=== PATIENT | female | born 1975 | race Two or more races ===

== ENCOUNTER → 2020-08-25 | Outpatient (CLI) | payer OTHER | LOC: RAD 08:48 | PROVIDERS: ATTEND Urology | DX: N20.0 Calculus of kidney (principal) | CPT/HCPCS: 74018 ==

== ENCOUNTER → 2020-10-27 | Day surgery (SDC) | payer OTHER ==
[2020-10-25 14:55] LABS: BASOPHILS # (AUTO) 0.1 (0.0-0.1); BASOPHILS % 0.7 % (0.0-1.0); EOSINOPHILS # (AUTO) 0.1 (0.0-0.4); EOSINOPHILS % 1.2 % (0.0-6.0); HEMATOCRIT 36.8 % (34.2-44.1); LYMPHOCYTES # (AUTO) 2.4 (1.0-3.2); LYMPHOCYTES % 26.3 % (18.0-39.1); MEAN CORPUSCULAR HEMOGLOBIN 23.8 pg (28-32); MEAN CORPUSCULAR HGB CONC 29.9 g/dL (31-35); MEAN CORPUSCULAR VOLUME 79.7 fL (81-99); MONOCYTES # (AUTO) 0.6 (0.2-0.8); MONOCYTES % 6.6 % (4.4-11.3); NEUTROPHILS # (AUTO) 5.8 (2.1-6.9); NEUTROPHILS % 64.5 % (38.7-80.0); PLATELET COUNT 515 x10e3/uL (140-360); RED BLOOD COUNT 4.62 x10e6/uL (3.6-5.1); RED CELL DISTRIBUTION WIDTH 16.3 % (11.7-14.4)
[2020-10-25 15:07] LABS: ALBUMIN 3.6 g/dL (3.5-5.0); ALBUMIN/GLOBULIN RATIO 0.6 (0.8-2.0); CALCIUM 9.3 mg/dL (8.4-10.2); CREATININE, SERUM 1.95 mg/dL (0.57-1.11)
[~2020-10-27] MED LIST: ATORVASTATIN CA10 MG PO; B&O 60MG R/S 60 MG SUPP PR ONE; CEFTRIAXONE SOD 1 GM/NS 50 ML 50 ML IV ONE; FENTANYL CITRATE/PF 100MCG/2 ML INJ ONE; FEROSUL325 MG PO; GLIPIZIDE5 MG PO; IOPAMIDOL 300MG/ML 50ML INFUS..BTL IV ONE; LOSARTAN POTASS25 MG PO; METFORMIN HCL850 MG PO
[2020-10-27 10:35] VITALS: BP 122/89
== END | disposition home or self-care (01) ==
LOC: OR 05:34
PROVIDERS: ATTEND Urology
DX: N20.0 Calculus of kidney (principal); E11.22 Type 2 diabetes mellitus with diabetic chronic kidney disease; I12.9 Hypertensive chronic kidney disease with stage 1 through stage 4 chronic kidney disease, or unspecified chronic kidney disease; N18.9 Chronic kidney disease, unspecified; N35.92 Unspecified urethral stricture, female; N31.9 Neuromuscular dysfunction of bladder, unspecified; N13.70 Vesicoureteral-reflux, unspecified; N13.30 Unspecified hydronephrosis; N32.3 Diverticulum of bladder; N32.89 Other specified disorders of bladder; N30.90 Cystitis, unspecified without hematuria; R00.0 Tachycardia, unspecified; Z01.810 Encounter for preprocedural cardiovascular examination; Z01.812 Encounter for preprocedural laboratory examination; Z01.818 Encounter for other preprocedural examination; Z20.822 Contact with and (suspected) exposure to COVID-19; Z79.84 Long term (current) use of oral hypoglycemic drugs; Z97.5 Presence of (intrauterine) contraceptive device
CPT/HCPCS: 36415; 74018; 80053; 81025; 82948; 83970; 84550; 85025; 87086; 93005; C1758; C2617; J0696; J3010; U0002

== ENCOUNTER → 2020-12-15 | Day surgery (SDC) | payer OTHER ==
[2020-12-13 08:41] LABS: BASOPHILS # (AUTO) 0.1 (0.0-0.1); BASOPHILS % 0.5 % (0.0-1.0); EOSINOPHILS # (AUTO) 0.2 (0.0-0.4); EOSINOPHILS % 1.7 % (0.0-6.0); HEMATOCRIT 34.4 % (34.2-44.1); HEMOGLOBIN 10.2 g/dL (12.0-16.0); LYMPHOCYTES # (AUTO) 1.7 (1.0-3.2); LYMPHOCYTES % 15.1 % (18.0-39.1); MEAN CORPUSCULAR HEMOGLOBIN 23.8 pg (28-32); MEAN CORPUSCULAR HGB CONC 29.7 g/dL (31-35); MEAN CORPUSCULAR VOLUME 80.2 fL (81-99); MONOCYTES # (AUTO) 0.7 (0.2-0.8); MONOCYTES % 6.4 % (4.4-11.3); NEUTROPHILS # (AUTO) 8.6 (2.1-6.9); NEUTROPHILS % 75.1 % (38.7-80.0); PLATELET COUNT 499 x10e3/uL (140-360); RED BLOOD COUNT 4.29 x10e6/uL (3.6-5.1); RED CELL DISTRIBUTION WIDTH 16.7 % (11.7-14.4)
[2020-12-13 08:59] LABS: ALBUMIN 3.3 g/dL (3.5-5.0); ALBUMIN/GLOBULIN RATIO 0.6 (0.8-2.0); ANION GAP 13.9 mmol/L (8-16); CALCIUM 9.3 mg/dL (8.4-10.2); CREATININE, SERUM 1.79 mg/dL (0.57-1.11); POTASSIUM 3.9 mmol/L (3.5-5.1)
[~2020-12-15] MED LIST changes: +CEFTRIAXONE SOD 1 GM VIAL ONE; -CEFTRIAXONE SOD 1 GM/NS 50 ML 50 ML IV ONE; +DEXAMETHASONE SOD PHOS INJ 4 MG/ML VIAL ONE; +INDIGOTINDISULFONATE SODIUM 8 MG/ML AMP IJ ONE; +LIDOCAINE HCL 2% JELLY 5 ML TUBE ONE; +LIDOCAINE HCL 2% LOCAL INJ 5 ML SDV VIAL INJ ONE; +LIPITOR10 MG PO; +MIDAZOLAM HCL 2 MG/2 ML VIAL ONE; +ONDANSETRON HCL INJ 2MG/ML 2ML 2 MG/ML VIAL ONE; +PROPOFOL IV EMULSION 10 MG/ML 20 ML VIAL ONE; +SEVOFLURANE INHAL SOLN 250 ML PEN BTL ONE; +SODIUM CHLORIDE 0.9% 50ML 50 ML ONE
[2020-12-15 11:05] VITALS: BP 127/82
== END | disposition home or self-care (01) ==
LOC: OR 05:41
PROVIDERS: ATTEND Urology
DX: N20.0 Calculus of kidney (principal); N13.30 Unspecified hydronephrosis; N39.0 Urinary tract infection, site not specified; N31.9 Neuromuscular dysfunction of bladder, unspecified; N32.89 Other specified disorders of bladder; N13.8 Other obstructive and reflux uropathy; Z96.0 Presence of urogenital implants; R80.9 Proteinuria, unspecified; N35.92 Unspecified urethral stricture, female; E11.22 Type 2 diabetes mellitus with diabetic chronic kidney disease; I12.9 Hypertensive chronic kidney disease with stage 1 through stage 4 chronic kidney disease, or unspecified chronic kidney disease; N18.9 Chronic kidney disease, unspecified; Z01.812 Encounter for preprocedural laboratory examination; Z20.822 Contact with and (suspected) exposure to COVID-19; Z79.84 Long term (current) use of oral hypoglycemic drugs
CPT/HCPCS: 36415 ×2; 50590; 52332; 80053; 82948; 84550; 84702; 85025; C1758; C2617; J0696; J1100; J2001 ×2; J2250; J2405; J2704; J3010; Q9967; U0002

== ENCOUNTER → 2021-04-01 | Day surgery (SDC) | payer OTHER ==
[2021-03-30 08:41] LABS: BASOPHILS # (AUTO) 0.1 (0.0-0.1); BASOPHILS % 0.8 % (0.0-1.0); EOSINOPHILS # (AUTO) 0.2 (0.0-0.4); EOSINOPHILS % 1.2 % (0.0-6.0); HEMATOCRIT 29.2 % (34.2-44.1); HEMOGLOBIN 8.9 g/dL (12.0-16.0); LYMPHOCYTES # (AUTO) 2.5 (1.0-3.2); LYMPHOCYTES % 18.9 % (18.0-39.1); MEAN CORPUSCULAR HEMOGLOBIN 24.3 pg (28-32); MEAN CORPUSCULAR HGB CONC 30.5 g/dL (31-35); MEAN CORPUSCULAR VOLUME 79.6 fL (81-99); MONOCYTES # (AUTO) 0.9 (0.2-0.8); MONOCYTES % 6.5 % (4.4-11.3); NEUTROPHILS # (AUTO) 9.4 (2.1-6.9); NEUTROPHILS % 71.4 % (38.7-80.0); PLATELET COUNT 574 x10e3/uL (140-360); RED BLOOD COUNT 3.67 x10e6/uL (3.6-5.1); RED CELL DISTRIBUTION WIDTH 15.9 % (11.7-14.4)
[2021-03-30 09:12] LABS: ALBUMIN 3.1 g/dL (3.5-5.0); ALBUMIN/GLOBULIN RATIO 0.5 (0.8-2.0); ANION GAP 15.2 mmol/L (8-16); CALCIUM 9.3 mg/dL (8.4-10.2); CREATININE, SERUM 3.22 mg/dL (0.57-1.11); POTASSIUM 4.2 mmol/L (3.5-5.1)
[~2021-04-01] MED LIST changes: +AMPICILLIN SOD 1 GM/NS 50ML 100 ML IV ONE; -CEFTRIAXONE SOD 1 GM VIAL ONE; +EPHEDRINE SULFATE INJ 50 MG/ML VIAL ONE; +FARXIGA10 MG PO; +GENTAMICIN 80MG/NS 100 ML 200 ML IV ONE; -INDIGOTINDISULFONATE SODIUM 8 MG/ML AMP IJ ONE; -LIDOCAINE HCL 2% JELLY 5 ML TUBE ONE; +POVIDONE IODINE 0.05% 0.05 % ML PO ONE; -SODIUM CHLORIDE 0.9% 50ML 50 ML ONE
[2021-04-01 12:00] VITALS: BP 98/64
== END | disposition home or self-care (01) ==
LOC: OR 05:52
PROVIDERS: ATTEND Urology
DX: Z46.6 Encounter for fitting and adjustment of urinary device (principal); Z96.0 Presence of urogenital implants; N18.9 Chronic kidney disease, unspecified; R31.0 Gross hematuria; N13.2 Hydronephrosis with renal and ureteral calculous obstruction; N81.6 Rectocele; N28.9 Disorder of kidney and ureter, unspecified; I12.9 Hypertensive chronic kidney disease with stage 1 through stage 4 chronic kidney disease, or unspecified chronic kidney disease; Z87.442 Personal history of urinary calculi; N31.9 Neuromuscular dysfunction of bladder, unspecified; N35.92 Unspecified urethral stricture, female; Z01.812 Encounter for preprocedural laboratory examination; E11.9 Type 2 diabetes mellitus without complications
CPT/HCPCS: 36415 ×2; 52352; 52356; 74018; 74420; 80053; 81025 ×2; 82948; 83970; 84550; 85025; 87086; 88300; 93005; C1758; C1766; C1769; C2617; J0290; J1100; J1580; J2001; J2250; J2405; J2704; J3010; Q9967

== ENCOUNTER 2021-06-02 10:57 | Inpatient (IN) | payer OTHER ==
[~2021-06-02] VITALS: Ht 152.4 cm; Wt 42.2 kg
[~2021-06-02 10:57] MED LIST changes: -AMPICILLIN SOD 1 GM/NS 50ML 100 ML IV ONE; -B&O 60MG R/S 60 MG SUPP PR ONE; -DEXAMETHASONE SOD PHOS INJ 4 MG/ML VIAL ONE; -EPHEDRINE SULFATE INJ 50 MG/ML VIAL ONE; -FENTANYL CITRATE/PF 100MCG/2 ML INJ ONE; -GENTAMICIN 80MG/NS 100 ML 200 ML IV ONE; -IOPAMIDOL 300MG/ML 50ML INFUS..BTL IV ONE; -LIDOCAINE HCL 2% LOCAL INJ 5 ML SDV VIAL INJ ONE; -MIDAZOLAM HCL 2 MG/2 ML VIAL ONE; -ONDANSETRON HCL INJ 2MG/ML 2ML 2 MG/ML VIAL ONE; -POVIDONE IODINE 0.05% 0.05 % ML PO ONE; -PROPOFOL IV EMULSION 10 MG/ML 20 ML VIAL ONE; -SEVOFLURANE INHAL SOLN 250 ML PEN BTL ONE
[2021-06-02 12:35] LABS: ANION GAP 16.5 mmol/L (8-16); CALCIUM 9.9 mg/dL (8.4-10.2); CREATININE, SERUM 2.9 mg/dL (0.57-1.11); POTASSIUM 5.5 mmol/L (3.5-5.1)
[2021-06-02] MEDS ORDERED: SODIUM CHLORIDE 0.9% 1000ML 1,000 ML IV SCH (13:00)
[2021-06-02] MEDS: SODIUM CHLORIDE 0.9% 1000ML 1,000 ML IV SCH ×3 (13:30→21:00)
[2021-06-02 14:08] LABS: CLARITY,URINE CLOUDY (CLEAR); COLOR,URINE STRAW (YELLOW)
[2021-06-02 14:10] LABS: KETONES,URINE NEGATIVE (NEGATIVE); LEUKOCYTE ESTERASE ,URINE LARGE (NEGATIVE)
[2021-06-02 14:11] LABS: NITRITE,URINE NEGATIVE (NEGATIVE); PROTEIN,URINE DIPSTICK 3+ (NEGATIVE); URINE UROBILINOGEN 0.2 mg/dL (0.2 - 1)
[2021-06-02 14:14] LABS: BACTERIA,URINE MANY /HPF; RBC,URINE >50 /HPF (0-5)
[2021-06-02] MEDS ORDERED: SOD POLYSTYRENE SULFONATE SUSP 15 GM/60 ML BTL PO ONE (15:15)
[2021-06-02] MEDS ORDERED: FUROSEMIDE INJ 10 MG/ML 2 ML VIAL IV ONE (15:15)
[2021-06-02 15:49] LABS: BASOPHILS # (AUTO) 0.1 (0.0-0.1); BASOPHILS % 0.6 % (0.0-1.0); EOSINOPHILS % 0.1 % (0.0-6.0); HEMATOCRIT 35.2 % (34.2-44.1); HEMOGLOBIN 11.2 g/dL (12.0-16.0); LYMPHOCYTES # (AUTO) 1.8 (1.0-3.2); LYMPHOCYTES % 12.9 % (18.0-39.1); MEAN CORPUSCULAR HEMOGLOBIN 25.3 pg (28-32); MEAN CORPUSCULAR HGB CONC 31.8 g/dL (31-35); MEAN CORPUSCULAR VOLUME 79.6 fL (81-99); MONOCYTES # (AUTO) 0.8 (0.2-0.8); NEUTROPHILS # (AUTO) 10.5 (2.1-6.9); NEUTROPHILS % 77.6 % (38.7-80.0); PLATELET COUNT 534 x10e3/uL (140-360); RED BLOOD COUNT 4.42 x10e6/uL (3.6-5.1); RED CELL DISTRIBUTION WIDTH 15.8 % (11.7-14.4)
[2021-06-02 21:00] VITALS: BP 93/63
[2021-06-02 21:09] VITALS: BP 104/70
[2021-06-02] MEDS ORDERED: GLIPIZIDE5 MG PO (21:20)
[2021-06-02] MEDS ORDERED: FLUOXETINE HCL20 M1 PO (21:21)
[2021-06-02] MEDS ORDERED: CYPROHEPTADINE H4 MG PO (21:24)
[2021-06-02] MEDS ORDERED: OXYBUTYNIN CHLOR5 MG PO (21:24)
[2021-06-02] MEDS ORDERED: FLUCONAZOLE 200 MG/100 ML 100 ML IV SCH (22:45)
[2021-06-02] MEDS ORDERED: DEXTROSE 50% SYRINGE 50 ML IV PRN (22:45)
[2021-06-02] MEDS ORDERED: CEFEPIME 1 GM in SODIUM CHLORIDE 0.9% 50ML 50 ML IV SCH (22:45)
[2021-06-02] MEDS ORDERED: HYDRALAZINE HCL 20 MG/ML VIAL IV PRN (22:45)
[2021-06-02] MEDS ORDERED: ONDANSETRON HCL INJ 2MG/ML 2ML 2 MG/ML VIAL IV PRN (22:45)
[2021-06-02] MEDS ORDERED: FLUCONAZOLE 200 MG/100 ML 100 ML IV ONE (23:00)
[2021-06-02] MEDS ORDERED: CEFEPIME 1 GM in SODIUM CHLORIDE 0.9% 50ML 50 ML IV ONE (23:00)
[2021-06-03] VITALS (7 sets, daily range): BP systolic 88–102; BP diastolic 60–70
[2021-06-03] MEDS: SODIUM CHLORIDE 0.9% 1000ML 1,000 ML IV SCH (04:57)
[2021-06-03 06:06] LABS: MAGNESIUM 1.5 MG/DL (1.3-2.1); PHOSPHORUS 5.7 MG/DL (2.3-4.7)
[2021-06-03] MEDS: INSULIN LISPRO 100 UNIT/1 ML 3ML VIAL SQ SCH ×4 (07:30→20:31)
[2021-06-03 08:07] LABS: BASOPHILS % 0.6 % (0.0-1.0); EOSINOPHILS % 0.3 % (0.0-6.0); HEMATOCRIT 23.9 % (34.2-44.1); LYMPHOCYTES # (AUTO) 1.3 (1.0-3.2); LYMPHOCYTES % 19.1 % (18.0-39.1); MEAN CORPUSCULAR HEMOGLOBIN 25.6 pg (28-32); MEAN CORPUSCULAR HGB CONC 33.5 g/dL (31-35); MEAN CORPUSCULAR VOLUME 76.4 fL (81-99); MONOCYTES # (AUTO) 0.8 (0.2-0.8); MONOCYTES % 11.8 % (4.4-11.3); NEUTROPHILS # (AUTO) 4.4 (2.1-6.9); NEUTROPHILS % 66.2 % (38.7-80.0); PLATELET COUNT 255 x10e3/uL (140-360); RED BLOOD COUNT 3.13 x10e6/uL (3.6-5.1); RED CELL DISTRIBUTION WIDTH 15.7 % (11.7-14.4)
[2021-06-03] MEDS ORDERED: GENTAMICIN 80MG/NS 100 ML 100 ML IV SCH (08:15)
[2021-06-03] MEDS ORDERED: NON-FORMULARY MEDICATION (Dapagliflozin Propanediol (Farxiga) 10 MG) PO SCH (09:00)
[2021-06-03] MEDS: OXYBUTYNIN CHLORIDE 5 MG TAB PO SCH ×2 (09:00→16:57)
[2021-06-03] MEDS: FLUOXETINE HCL 20 MG CAP PO SCH (09:00)
[2021-06-03] MEDS ORDERED: CEFTRIAXONE 1 GM in SODIUM CHLORIDE 0.9% 50ML 50 ML IV SCH (09:00)
[2021-06-03] MEDS ORDERED: CEFEPIME 1 GM in SODIUM CHLORIDE 0.9% 50ML 50 ML IV SCH (09:00)
[2021-06-03] MEDS: FLUCONAZOLE 200 MG/100 ML 100 ML IV SCH (09:51)
[2021-06-03 10:27] LABS: ALBUMIN 2.3 g/dL (3.5-5.0); ALBUMIN/GLOBULIN RATIO 0.5 (0.8-2.0); ANION GAP 14.5 mmol/L (8-16); CALCIUM 8.2 mg/dL (8.4-10.2); CREATININE, SERUM 2.06 mg/dL (0.57-1.11); POTASSIUM 3.5 mmol/L (3.5-5.1)
[2021-06-03] MEDS: CEFEPIME 1 GM in SODIUM CHLORIDE 0.9% 50ML 50 ML IV SCH ×2 (10:48→20:30)
[2021-06-03] MEDS: NON-FORMULARY MEDICATION (Dapagliflozin Propanediol (Farxiga) 10 MG) PO SCH (12:10)
[2021-06-03] MEDS ORDERED: LIDOCAINE HCL 2% LOCAL INJ 5 ML SDV VIAL INJ ONE (12:38)
[2021-06-03] MEDS ORDERED: DEXAMETHASONE SOD PHOS INJ 4 MG/ML SDV ONE (12:38)
[2021-06-03] MEDS ORDERED: POVIDONE IODINE 0.05% 0.05 % ML PO ONE (12:38)
[2021-06-03] MEDS ORDERED: PROPOFOL IV EMULSION 10 MG/ML 20 ML VIAL ONE (12:38)
[2021-06-03] MEDS ORDERED: SEVOFLURANE INHAL SOLN 250 ML PEN BTL ONE (12:38)
[2021-06-03] MEDS ORDERED: ONDANSETRON HCL INJ 2MG/ML 2ML 2 MG/ML VIAL ONE (12:38)
[2021-06-03] MEDS ORDERED: IOPAMIDOL 300MG/ML 50ML INFUS..BTL IV ONE ×2 (13:12→13:52)
[2021-06-03] MEDS ORDERED: BELLADONNA/OPIUM 30 MG SUPP RC ONE (13:12)
[2021-06-03 15:12] LABS: OSMOLALITY,SERUM OSMOMETER 282 mOsmol/kg (275-295)
[2021-06-03] MEDS ORDERED: SODIUM BICARBONATE 8.4% 50 ML in SODIUM CHLORIDE 0.45% 1,000 ML IV SCH (17:00)
[2021-06-04] VITALS (9 sets, daily range): BP systolic 76–156; BP diastolic 50–82
[2021-06-04 06:34] LABS: BASOPHILS % 0.2 % (0.0-1.0); LYMPHOCYTES # (AUTO) 1.1 (1.0-3.2); LYMPHOCYTES % 9.2 % (18.0-39.1); MEAN CORPUSCULAR HEMOGLOBIN 25.8 pg (28-32); MEAN CORPUSCULAR HGB CONC 32.8 g/dL (31-35); MEAN CORPUSCULAR VOLUME 78.5 fL (81-99); MONOCYTES # (AUTO) 0.8 (0.2-0.8); MONOCYTES % 6.8 % (4.4-11.3); NEUTROPHILS # (AUTO) 9.9 (2.1-6.9); NEUTROPHILS % 82.7 % (38.7-80.0); PLATELET COUNT 271 x10e3/uL (140-360); RED CELL DISTRIBUTION WIDTH 15.9 % (11.7-14.4)
[2021-06-04 06:51] LABS: ANION GAP 14.4 mmol/L (8-16); CREATININE, SERUM 2.07 mg/dL (0.57-1.11); POTASSIUM 3.4 mmol/L (3.5-5.1)
[2021-06-04 06:52] LABS: HEMATOCRIT 20.4 % (34.2-44.1); HEMOGLOBIN 6.7 g/dL (12.0-16.0)
[2021-06-04] MEDS: OXYBUTYNIN CHLORIDE 5 MG TAB PO SCH ×2 (09:14→17:50)
[2021-06-04] MEDS: CEFEPIME 1 GM in SODIUM CHLORIDE 0.9% 50ML 50 ML IV SCH (09:14)
[2021-06-04] MEDS: FLUOXETINE HCL 20 MG CAP PO SCH (09:14)
[2021-06-04] MEDS ORDERED: SODIUM CHLORIDE 0.9% 250ML 250 ML IV NR (09:30)
[2021-06-04] MEDS: INSULIN LISPRO 100 UNIT/1 ML 3ML VIAL SQ SCH ×4 (09:58→21:00)
[2021-06-04] MEDS: FLUCONAZOLE 200 MG/100 ML 100 ML IV SCH (09:59)
[2021-06-04] MEDS: NON-FORMULARY MEDICATION (Dapagliflozin Propanediol (Farxiga) 10 MG) PO SCH (09:59)
[2021-06-04] MEDS ORDERED: MICAFUNGIN SODIUM 100 MG in MICAFUNGIN SODIUM 100 ML IV SCH (11:15)
[2021-06-04] MEDS: LINEZOLID 600 MG/D5W 300ML 300 ML IV SCH ×2 (11:46→23:15)
[2021-06-04] MEDS ORDERED: SODIUM CHLORIDE 0.9% 250ML 250 ML ONE ×2 (12:35→12:49)
[2021-06-04] MEDS ORDERED: POTASSIUM CHLORIDE 20 MEQ TAB CR PO NR (15:30)
[2021-06-05] VITALS (9 sets, daily range): BP systolic 86–121; BP diastolic 57–97
[2021-06-05 06:42] LABS: BASOPHILS % 0.1 % (0.0-1.0); EOSINOPHILS # (AUTO) 0.1 (0.0-0.4); EOSINOPHILS % 0.7 % (0.0-6.0); HEMATOCRIT 28.5 % (34.2-44.1); HEMOGLOBIN 9.8 g/dL (12.0-16.0); LYMPHOCYTES # (AUTO) 1.6 (1.0-3.2); LYMPHOCYTES % 21.7 % (18.0-39.1); MEAN CORPUSCULAR HEMOGLOBIN 26.3 pg (28-32); MEAN CORPUSCULAR HGB CONC 34.4 g/dL (31-35); MEAN CORPUSCULAR VOLUME 76.6 fL (81-99); MONOCYTES # (AUTO) 0.7 (0.2-0.8); MONOCYTES % 9.2 % (4.4-11.3); NEUTROPHILS # (AUTO) 4.9 (2.1-6.9); NEUTROPHILS % 66.3 % (38.7-80.0); PLATELET COUNT 247 x10e3/uL (140-360); RED BLOOD COUNT 3.72 x10e6/uL (3.6-5.1); RED CELL DISTRIBUTION WIDTH 15.3 % (11.7-14.4)
[2021-06-05 07:16] LABS: CREATININE, SERUM 1.65 mg/dL (0.57-1.11)
[2021-06-05] MEDS: INSULIN LISPRO 100 UNIT/1 ML 3ML VIAL SQ SCH ×4 (07:30→21:00)
[2021-06-05] MEDS: CEFEPIME 1 GM in SODIUM CHLORIDE 0.9% 50ML 50 ML IV SCH (08:17)
[2021-06-05] MEDS: OXYBUTYNIN CHLORIDE 5 MG TAB PO SCH ×2 (08:18→16:41)
[2021-06-05] MEDS: FLUOXETINE HCL 20 MG CAP PO SCH (08:18)
[2021-06-05] MEDS: NON-FORMULARY MEDICATION (Dapagliflozin Propanediol (Farxiga) 10 MG) PO SCH (10:16)
[2021-06-05] MEDS: LINEZOLID 600 MG/D5W 300ML 300 ML IV SCH ×2 (11:44→22:15)
[2021-06-05] MEDS ORDERED: POTASSIUM CHLORIDE 10MEQ EA PO NR (12:30)
[2021-06-05] MEDS: SODIUM BICARBONATE 650 MG TAB PO SCH (16:41)
[2021-06-06] VITALS: BP 104/70
[2021-06-06 04:00] VITALS: BP 101/65
[2021-06-06 04:47] LABS: BASOPHILS % 0.3 % (0.0-1.0); EOSINOPHILS # (AUTO) 0.1 (0.0-0.4); EOSINOPHILS % 1.6 % (0.0-6.0); HEMATOCRIT 30.9 % (34.2-44.1); HEMOGLOBIN 10.1 g/dL (12.0-16.0); LYMPHOCYTES # (AUTO) 1.8 (1.0-3.2); LYMPHOCYTES % 28.8 % (18.0-39.1); MEAN CORPUSCULAR HEMOGLOBIN 25.6 pg (28-32); MEAN CORPUSCULAR HGB CONC 32.7 g/dL (31-35); MEAN CORPUSCULAR VOLUME 78.4 fL (81-99); MONOCYTES # (AUTO) 0.6 (0.2-0.8); MONOCYTES % 9.9 % (4.4-11.3); NEUTROPHILS # (AUTO) 3.6 (2.1-6.9); NEUTROPHILS % 57.3 % (38.7-80.0); PLATELET COUNT 219 x10e3/uL (140-360); RED BLOOD COUNT 3.94 x10e6/uL (3.6-5.1); RED CELL DISTRIBUTION WIDTH 15.3 % (11.7-14.4)
[2021-06-06 05:05] LABS: ANION GAP 12.6 mmol/L (8-16); CALCIUM 8.2 mg/dL (8.4-10.2); CREATININE, SERUM 1.56 mg/dL (0.57-1.11); POTASSIUM 3.6 mmol/L (3.5-5.1)
[2021-06-06 05:09] LABS: PHOSPHORUS 3.1 MG/DL (2.3-4.7)
[2021-06-06 05:12] LABS: MAGNESIUM 1.1 MG/DL (1.3-2.1)
[2021-06-06] MEDS: INSULIN LISPRO 100 UNIT/1 ML 3ML VIAL SQ SCH ×4 (07:30→21:18)
[2021-06-06 07:54] VITALS: BP 100/62
[2021-06-06] MEDS: NON-FORMULARY MEDICATION (Dapagliflozin Propanediol (Farxiga) 10 MG) PO SCH (09:00)
[2021-06-06] MEDS: CEFEPIME 1 GM in SODIUM CHLORIDE 0.9% 50ML 50 ML IV SCH (09:04)
[2021-06-06] MEDS: FLUOXETINE HCL 20 MG CAP PO SCH (09:05)
[2021-06-06] MEDS: POTASSIUM CHLORIDE 20 MEQ TAB CR PO SCH (09:05)
[2021-06-06] MEDS: OXYBUTYNIN CHLORIDE 5 MG TAB PO SCH ×2 (09:05→16:36)
[2021-06-06] MEDS: SODIUM BICARBONATE 650 MG TAB PO SCH ×2 (09:06→16:36)
[2021-06-06] MEDS ORDERED: MAGNESIUM SULFATE 2GM/50ML IV SCH (10:15)
[2021-06-06] MEDS ORDERED: MAGNESIUM SULFATE 2GM/50ML 50 ML IV SCH (11:00)
[2021-06-06] MEDS: LINEZOLID 600 MG/D5W 300ML 300 ML IV SCH ×2 (11:06→23:08)
[2021-06-06] MEDS: MAGNESIUM SULFATE 2GM/50ML 50 ML IV SCH ×2 (11:06→16:35)
[2021-06-06 11:59] VITALS: BP 113/74
[2021-06-06] MEDS ORDERED: ONDANSETRON HCL 4 MG ORAL DISINTEGRATING TAB PO PRN (13:15)
[2021-06-06] MEDS ORDERED: MAGNESIUM OXIDE 400 MG TAB PO ONE (13:45)
[2021-06-06] MEDS: MAGNESIUM OXIDE 400 MG TAB PO SCH (16:36)
[2021-06-06 20:52] VITALS: BP 109/64
[2021-06-06 21:00] VITALS: BP 109/64
[2021-06-07] VITALS (7 sets, daily range): BP systolic 96–107; BP diastolic 64–73
[2021-06-07] MEDS: INSULIN LISPRO 100 UNIT/1 ML 3ML VIAL SQ SCH ×4 (07:30→21:48)
[2021-06-07 07:35] LABS: ANION GAP 13.1 mmol/L (8-16); CALCIUM 8.1 mg/dL (8.4-10.2); CREATININE, SERUM 1.6 mg/dL (0.57-1.11); MAGNESIUM 2.2 MG/DL (1.3-2.1); POTASSIUM 4.1 mmol/L (3.5-5.1)
[2021-06-07 08:55] LABS: INR 1.07; PROTHROMBIN TIME 14.1 seconds (11.9-14.5)
[2021-06-07] MEDS: NON-FORMULARY MEDICATION (Dapagliflozin Propanediol (Farxiga) 10 MG) PO SCH (09:00)
[2021-06-07] MEDS: CEFEPIME 1 GM in SODIUM CHLORIDE 0.9% 50ML 50 ML IV SCH (09:36)
[2021-06-07] MEDS: OXYBUTYNIN CHLORIDE 5 MG TAB PO SCH ×2 (09:37→17:00)
[2021-06-07] MEDS: POTASSIUM CHLORIDE 20 MEQ TAB CR PO SCH (09:38)
[2021-06-07] MEDS: FLUOXETINE HCL 20 MG CAP PO SCH (09:38)
[2021-06-07] MEDS: SODIUM BICARBONATE 650 MG TAB PO SCH ×2 (09:38→17:00)
[2021-06-07] MEDS: MAGNESIUM OXIDE 400 MG TAB PO SCH ×2 (09:38→17:00)
[2021-06-07] MEDS: LINEZOLID 600 MG/D5W 300ML 300 ML IV SCH ×2 (12:30→23:04)
[2021-06-08] VITALS (8 sets, daily range): BP systolic 100–114; BP diastolic 60–83
[2021-06-08 05:58] LABS: ANION GAP 12.5 mmol/L (8-16); CALCIUM 8.4 mg/dL (8.4-10.2); CREATININE, SERUM 1.55 mg/dL (0.57-1.11); MAGNESIUM 1.7 MG/DL (1.3-2.1); POTASSIUM 4.5 mmol/L (3.5-5.1)
[2021-06-08] MEDS: INSULIN LISPRO 100 UNIT/1 ML 3ML VIAL SQ SCH ×4 (07:30→21:54)
[2021-06-08] MEDS: OXYBUTYNIN CHLORIDE 5 MG TAB PO SCH ×2 (09:00→16:16)
[2021-06-08] MEDS: NON-FORMULARY MEDICATION (Dapagliflozin Propanediol (Farxiga) 10 MG) PO SCH (09:00)
[2021-06-08] MEDS: POTASSIUM CHLORIDE 20 MEQ TAB CR PO SCH ×2 (09:00→16:17)
[2021-06-08] MEDS: FLUOXETINE HCL 20 MG CAP PO SCH ×2 (09:00→16:17)
[2021-06-08] MEDS: SODIUM BICARBONATE 650 MG TAB PO SCH ×2 (09:00→16:16)
[2021-06-08] MEDS: MAGNESIUM OXIDE 400 MG TAB PO SCH ×2 (09:00→16:16)
[2021-06-08] MEDS: CEFEPIME 1 GM in SODIUM CHLORIDE 0.9% 50ML 50 ML IV SCH (09:40)
[2021-06-08] MEDS: LINEZOLID 600 MG/D5W 300ML 300 ML IV SCH ×2 (10:21→23:25)
[2021-06-08 12:21] LABS: POTASSIUM,URINE 13.6 mmol/L
[2021-06-08] MEDS ORDERED: SODIUM CHLORIDE 0.9% 250ML 250 ML ONE (12:56)
[2021-06-08] MEDS ORDERED: LIDOCAINE HCL 1% LOCAL INJ 20 ML VIAL ONE ×2 (12:56→14:13)
[2021-06-08] MEDS ORDERED: SODIUM CHLORIDE 0.9% 500ML 500 ML ONE ×2 (13:11→14:13)
[2021-06-08] MEDS ORDERED: MIDAZOLAM HCL 2 MG/2 ML VIAL ONE (13:17)
[2021-06-08] MEDS ORDERED: FENTANYL CITRATE/PF 100MCG/2 ML INJ ONE (13:18)
[2021-06-08] MEDS: FLUCONAZOLE 200 MG/100 ML 100 ML IV SCH (17:42)
[2021-06-09] VITALS (8 sets, daily range): BP systolic 84–101; BP diastolic 55–65
[2021-06-09] MEDS: ACETAMINOPHEN 325 MG TAB PO PRN ×2 (02:44→09:57)
[2021-06-09] MEDS: INSULIN LISPRO 100 UNIT/1 ML 3ML VIAL SQ SCH ×4 (08:43→21:00)
[2021-06-09] MEDS: NON-FORMULARY MEDICATION (Dapagliflozin Propanediol (Farxiga) 10 MG) PO SCH (09:00)
[2021-06-09] MEDS: CEFEPIME 1 GM in SODIUM CHLORIDE 0.9% 50ML 50 ML IV SCH (09:56)
[2021-06-09] MEDS: OXYBUTYNIN CHLORIDE 5 MG TAB PO SCH ×2 (09:56→17:07)
[2021-06-09] MEDS: SODIUM BICARBONATE 650 MG TAB PO SCH ×2 (09:57→17:07)
[2021-06-09] MEDS: FLUOXETINE HCL 20 MG CAP PO SCH (09:57)
[2021-06-09] MEDS: POTASSIUM CHLORIDE 20 MEQ TAB CR PO SCH (09:57)
[2021-06-09] MEDS: MAGNESIUM OXIDE 400 MG TAB PO SCH ×2 (09:57→17:07)
[2021-06-09] MEDS: LINEZOLID 600 MG/D5W 300ML 300 ML IV SCH ×2 (11:19→23:31)
[2021-06-09] MEDS: FLUCONAZOLE 200 MG/100 ML 100 ML IV SCH (17:08)
[2021-06-10] VITALS (7 sets, daily range): BP systolic 82–122; BP diastolic 46–68
[2021-06-10 06:55] LABS: ANION GAP 15.2 mmol/L (8-16); CALCIUM 9.4 mg/dL (8.4-10.2); CREATININE, SERUM 1.63 mg/dL (0.57-1.11); POTASSIUM 5.2 mmol/L (3.5-5.1)
[2021-06-10] MEDS: INSULIN LISPRO 100 UNIT/1 ML 3ML VIAL SQ SCH ×3 (07:30→16:30)
[2021-06-10] MEDS: MAGNESIUM OXIDE 400 MG TAB PO SCH ×2 (09:00→16:48)
[2021-06-10] MEDS: POTASSIUM CHLORIDE 20 MEQ TAB CR PO SCH (09:00)
[2021-06-10] MEDS: NON-FORMULARY MEDICATION (Dapagliflozin Propanediol (Farxiga) 10 MG) PO SCH (09:00)
[2021-06-10] MEDS: OXYBUTYNIN CHLORIDE 5 MG TAB PO SCH ×2 (09:00→16:48)
[2021-06-10] MEDS: CEFEPIME 1 GM in SODIUM CHLORIDE 0.9% 50ML 50 ML IV SCH (09:00)
[2021-06-10] MEDS: SODIUM BICARBONATE 650 MG TAB PO SCH ×2 (09:00→16:48)
[2021-06-10] MEDS: FLUOXETINE HCL 20 MG CAP PO SCH (09:00)
[2021-06-10] MEDS: LINEZOLID 600 MG/D5W 300ML 300 ML IV SCH (11:15)
[2021-06-10] MEDS ORDERED: tylenol#3 PO (15:29)
[2021-06-10] MEDS ORDERED: LEVOFLOXACIN250 MG PO ×2 (15:30→15:31)
[2021-06-10] MEDS ORDERED: DIFLUCAN100 MG PO (15:32)
[2021-06-10] MEDS ORDERED: SODIUM BICARBO650 MG PO (17:10)
[2021-06-10] MEDS ORDERED: SEVOFLURANE INHAL SOLN 250 ML PEN BTL INH ONE (17:59)
[2021-06-10] MEDS ORDERED: PROPOFOL IV EMULSION 10 MG/ML 20 ML VIAL IV ONE (17:59)
[2021-06-10] MEDS ORDERED: POVIDONE IODINE 0.05% 0.05 % ML PO ONE (17:59)
== END 2021-06-10 18:00 | disposition home or self-care (01) | DRG 659 ==
LOC: ER 11:10 → ERHOLD 13:00 → MED/SURG2 20:51
PROVIDERS: ADMIT Internal Medicine; ATTEND Internal Medicine
PROC: 0TP98DZ Removal of Intraluminal Device from Ureter, Via Natural or Artificial Opening Endoscopic (ICD-10-PCS; 2021-06-03)
PROC: BT141ZZ Fluoroscopy of Kidneys, Ureters and Bladder using Low Osmolar Contrast (ICD-10-PCS; 2021-06-03)
PROC: 0T788DZ Dilation of Bilateral Ureters with Intraluminal Device, Via Natural or Artificial Opening Endoscopic (ICD-10-PCS; 2021-06-03 12:30)
PROC: 30233N1 Transfusion of Nonautologous Red Blood Cells into Peripheral Vein, Percutaneous Approach (ICD-10-PCS; 2021-06-04)
PROC: 0T9B30Z Drainage of Bladder with Drainage Device, Percutaneous Approach (ICD-10-PCS; principal; 2021-06-08 15:31)
DX: T83.593A Infection and inflammatory reaction due to other urinary stents, initial encounter (principal); A41.9 Sepsis, unspecified organism; N17.0 Acute kidney failure with tubular necrosis; R65.21 Severe sepsis with septic shock; N13.6 Pyonephrosis; E87.1 Hypo-osmolality and hyponatremia; E87.2 Acidosis; N12 Tubulo-interstitial nephritis, not specified as acute or chronic; B37.49 Other urogenital candidiasis; E87.8 Other disorders of electrolyte and fluid balance, not elsewhere classified; E87.5 Hyperkalemia; E83.51 Hypocalcemia; E86.0 Dehydration; D63.8 Anemia in other chronic diseases classified elsewhere; N31.9 Neuromuscular dysfunction of bladder, unspecified; N39.498 Other specified urinary incontinence; I12.9 Hypertensive chronic kidney disease with stage 1 through stage 4 chronic kidney disease, or unspecified chronic kidney disease; N18.9 Chronic kidney disease, unspecified; E83.42 Hypomagnesemia; Z20.822 Contact with and (suspected) exposure to COVID-19
CPT/HCPCS: 36415; 51102; 51700; 74420; 74470; 76942; 80048; 80053; 81001; 81025; 82746; 82948; 83036; 83605; 83735; 83930; 83935; 84100; 84133; 84300; 84550; 85025; 85610; 86850; 86900; 86920; 87086; 87186; 93005; 96360; 97139; 99284; C1769; C2617; J0692; J1100; J1450; J1580; J1940; J2001; J2020; J2250; J2405; J3010; J3475; J7030; J7040; J7050; P9016; Q0162; U0002

== ENCOUNTER 2021-06-13 18:13 | Emergency (ER) | payer OTHER ==
[~2021-06-13] VITALS: Ht 157.5 cm; Wt 42.2 kg
[~2021-06-13 18:13] MED LIST changes: +CYPROHEPTADINE H4 MG PO; +DIFLUCAN100 MG PO; +FLUOXETINE HCL20 M1 PO; +LEVOFLOXACIN250 MG PO; +OXYBUTYNIN CHLOR5 MG PO; +SODIUM BICARBO650 MG PO; +tylenol#3 PO
[2021-06-13 21:44] VITALS: BP 130/71
== END 2021-06-13 21:48 | disposition home or self-care (01) ==
LOC: ER 19:49
DX: R31.9 Hematuria, unspecified (principal); E11.9 Type 2 diabetes mellitus without complications; Z87.442 Personal history of urinary calculi
CPT/HCPCS: 87086; 99283

== ENCOUNTER → 2021-09-14 | Outpatient (CLI) | payer OTHER | LOC: RAD 11:12 | PROVIDERS: ATTEND Urology | DX: N20.0 Calculus of kidney (principal) | CPT/HCPCS: 74018 ==

== ENCOUNTER → 2021-09-19 | Day surgery (SDC) | payer OTHER ==
[2021-09-15 14:59] LABS: BASOPHILS # (AUTO) 0.1 (0.0-0.1); EOSINOPHILS # (AUTO) 0.2 (0.0-0.4); EOSINOPHILS % 2.3 % (0.0-6.0); HEMOGLOBIN 11.2 g/dL (12.0-16.0); MEAN CORPUSCULAR HEMOGLOBIN 25.8 pg (28-32); MEAN CORPUSCULAR HGB CONC 30.3 g/dL (31-35); MEAN CORPUSCULAR VOLUME 85.3 fL (81-99); MONOCYTES # (AUTO) 0.8 (0.2-0.8); MONOCYTES % 8.2 % (4.4-11.3); NEUTROPHILS # (AUTO) 5.2 (2.1-6.9); NEUTROPHILS % 55.9 % (38.7-80.0); PLATELET COUNT 444 x10e3/uL (140-360); RED BLOOD COUNT 4.34 x10e6/uL (3.6-5.1); RED CELL DISTRIBUTION WIDTH 14.4 % (11.7-14.4)
[2021-09-15 15:19] LABS: ANION GAP 15.8 mmol/L (8-16); CALCIUM 9.6 mg/dL (8.4-10.2); CREATININE, SERUM 1.5 mg/dL (0.57-1.11); POTASSIUM 3.8 mmol/L (3.5-5.1)
[~2021-09-19] MED LIST changes: +BELLADONNA/OPIUM 30 MG SUPP RC ONE; +BUPIVACAINE HCL 0.5% INJ 30 ML VIAL INJ ONE; +CEFTRIAXONE 1 GM VIAL ONE; +DEXAMETHASONE SOD PHOS INJ 4 MG/ML SDV ONE; +DEXTROSE 5% 250ML 250 ML IV ONE; +EPHEDRINE SULFATE INJ 50 MG/ML VIAL ONE; +FENTANYL CITRATE/PF 100MCG/2 ML INJ ONE; +GENTAMICIN 80MG/NS 100 ML 200 ML IV ONE; +IOPAMIDOL 300MG/ML 50ML INFUS..BTL IV ONE; +LIDOCAINE 1% W/EPINEPHRINE 20 ML VIAL ONE; +LIDOCAINE HCL 2% LOCAL INJ 5 ML SDV VIAL INJ ONE; +MIDAZOLAM HCL 2 MG/2 ML VIAL ONE; +ONDANSETRON HCL INJ 2MG/ML 2ML 2 MG/ML VIAL ONE; +POVIDONE IODINE 0.05% 0.05 % ML PO ONE; +PROPOFOL IV EMULSION 10 MG/ML 20 ML VIAL ONE; +SEVOFLURANE INHAL SOLN 250 ML PEN BTL ONE; +SODIUM CHLORIDE 0.9% 50ML 50 ML ONE
[2021-09-19 11:00] VITALS: BP 124/73
== END | disposition home or self-care (01) ==
LOC: OR 06:53
PROVIDERS: ATTEND Urology
DX: N13.722 Vesicoureteral-reflux with reflux nephropathy without hydroureter, bilateral (principal); N13.30 Unspecified hydronephrosis; N20.0 Calculus of kidney; N31.9 Neuromuscular dysfunction of bladder, unspecified; N39.0 Urinary tract infection, site not specified; Z46.6 Encounter for fitting and adjustment of urinary device; Z43.5 Encounter for attention to cystostomy; E11.22 Type 2 diabetes mellitus with diabetic chronic kidney disease; I12.9 Hypertensive chronic kidney disease with stage 1 through stage 4 chronic kidney disease, or unspecified chronic kidney disease; N18.9 Chronic kidney disease, unspecified; R80.9 Proteinuria, unspecified; N35.92 Unspecified urethral stricture, female; N81.10 Cystocele, unspecified; N32.89 Other specified disorders of bladder; E78.5 Hyperlipidemia, unspecified; Z01.810 Encounter for preprocedural cardiovascular examination; Z01.812 Encounter for preprocedural laboratory examination; Z20.822 Contact with and (suspected) exposure to COVID-19; Z79.84 Long term (current) use of oral hypoglycemic drugs; Z79.899 Other long term (current) drug therapy
CPT/HCPCS: 36415 ×2; 51705; 52005; 74420; 80048; 82948; 84550; 84702; 85025; 87086; 93005; C1758; J0696; J1100; J1580; J2001; J2250; J2405; J2704; J3010; J7070; Q9967; U0002

== ENCOUNTER → 2021-11-29 | Outpatient (CLI) | payer OTHER ==
[~2021-11-29] MED LIST changes: -BELLADONNA/OPIUM 30 MG SUPP RC ONE; -BUPIVACAINE HCL 0.5% INJ 30 ML VIAL INJ ONE; -CEFTRIAXONE 1 GM VIAL ONE; -DEXAMETHASONE SOD PHOS INJ 4 MG/ML SDV ONE; -DEXTROSE 5% 250ML 250 ML IV ONE; -EPHEDRINE SULFATE INJ 50 MG/ML VIAL ONE; -FENTANYL CITRATE/PF 100MCG/2 ML INJ ONE; +FUROSEMIDE INJ 10 MG/ML 4 ML VIAL ONE; -GENTAMICIN 80MG/NS 100 ML 200 ML IV ONE; -IOPAMIDOL 300MG/ML 50ML INFUS..BTL IV ONE; -LIDOCAINE 1% W/EPINEPHRINE 20 ML VIAL ONE; -LIDOCAINE HCL 2% LOCAL INJ 5 ML SDV VIAL INJ ONE; -MIDAZOLAM HCL 2 MG/2 ML VIAL ONE; -ONDANSETRON HCL INJ 2MG/ML 2ML 2 MG/ML VIAL ONE; -POVIDONE IODINE 0.05% 0.05 % ML PO ONE; -PROPOFOL IV EMULSION 10 MG/ML 20 ML VIAL ONE; -SEVOFLURANE INHAL SOLN 250 ML PEN BTL ONE; -SODIUM CHLORIDE 0.9% 50ML 50 ML ONE
== END ==
LOC: NM 07:56
PROVIDERS: ATTEND Urology
DX: N13.71 Vesicoureteral-reflux without reflux nephropathy (principal)
CPT/HCPCS: 78708; 81025; A9562; J1940

== ENCOUNTER 2021-12-27 06:02 | Emergency (ER) | payer OTHER ==
[~2021-12-27] VITALS: Ht 157.5 cm; Wt 42.2 kg
[~2021-12-27 06:02] MED LIST changes: -FUROSEMIDE INJ 10 MG/ML 4 ML VIAL ONE
[2021-12-27] MEDS ORDERED: FARXIGA10 MG PO (07:05)
[2021-12-27 07:20] LABS: CLARITY,URINE CLOUDY (CLEAR); COLOR,URINE RED (YELLOW); KETONES,URINE TRACE (NEGATIVE); LEUKOCYTE ESTERASE ,URINE LARGE (NEGATIVE); NITRITE,URINE POSITIVE (NEGATIVE); PROTEIN,URINE DIPSTICK >=300 (NEGATIVE)
[2021-12-27 07:21] LABS: URINE UROBILINOGEN 0.2 mg/dL (0.2 - 1)
[2021-12-27 07:42] LABS: RBC,URINE >50 /HPF (0-5); WBC,URINE (MAN) 21-50 /HPF (0-5)
[2021-12-27 07:43] LABS: BACTERIA,URINE FEW /HPF; EPITHELIAL CELLS,URINE RARE /LPF
== END 2021-12-27 07:14 | disposition home or self-care (01) ==
LOC: ER 06:15
DX: Z46.6 Encounter for fitting and adjustment of urinary device (principal); E11.9 Type 2 diabetes mellitus without complications; Z87.442 Personal history of urinary calculi
CPT/HCPCS: 81001; 87086; 87186; 99283

== ENCOUNTER 2022-04-07 23:46 | Emergency (ER) | payer OTHER ==
[~2022-04-07] VITALS: Ht 157.5 cm; Wt 42.2 kg
[2022-04-08 00:42] LABS: CLARITY,URINE CLOUDY (CLEAR); COLOR,URINE PINK (YELLOW); KETONES,URINE NEGATIVE (NEGATIVE); LEUKOCYTE ESTERASE ,URINE LARGE (NEGATIVE); NITRITE,URINE NEGATIVE (NEGATIVE); PROTEIN,URINE DIPSTICK 2+ (NEGATIVE); URINE UROBILINOGEN 0.2 mg/dL (0.2 - 1)
[2022-04-08 00:46] LABS: AMORPHOUS SEDIMENT,URINE MODERATE (FEW); BACTERIA,URINE MODERATE /HPF; EPITHELIAL CELLS,URINE FEW /LPF; RBC,URINE >50 /HPF (0-5); WBC,URINE (MAN) 21-50 /HPF (0-5)
[2022-04-08] MEDS ORDERED: CEFDINIR300 MG PO (01:03)
== END 2022-04-08 01:57 | disposition home or self-care (01) ==
LOC: ER 23:51
DX: Z46.6 Encounter for fitting and adjustment of urinary device (principal); N39.0 Urinary tract infection, site not specified; R31.9 Hematuria, unspecified; I10 Essential (primary) hypertension; E11.9 Type 2 diabetes mellitus without complications; Z87.442 Personal history of urinary calculi
CPT/HCPCS: 81001; 87086; 99282

== ENCOUNTER 2022-06-02 20:33 | Emergency (ER) | payer OTHER ==
[~2022-06-02] VITALS: Ht 157.5 cm; Wt 42.2 kg
[~2022-06-02 20:33] MED LIST changes: +CEFDINIR300 MG PO
== END 2022-06-02 22:17 | disposition home or self-care (01) ==
LOC: ER 20:39
DX: Z46.6 Encounter for fitting and adjustment of urinary device (principal); N39.0 Urinary tract infection, site not specified; I10 Essential (primary) hypertension; E11.9 Type 2 diabetes mellitus without complications; N31.9 Neuromuscular dysfunction of bladder, unspecified
CPT/HCPCS: 99282

== ENCOUNTER 2022-07-31 23:08 | Emergency (ER) | payer OTHER ==
[~2022-07-31] VITALS: Ht 157.5 cm; Wt 42.2 kg
[2022-08-01 00:12] LABS: CLARITY,URINE CLOUDY (CLEAR); COLOR,URINE PINK (YELLOW); KETONES,URINE NEGATIVE (NEGATIVE); LEUKOCYTE ESTERASE ,URINE LARGE (NEGATIVE); NITRITE,URINE NEGATIVE (NEGATIVE); PROTEIN,URINE DIPSTICK >=300 (NEGATIVE); URINE UROBILINOGEN 0.2 mg/dL (0.2 - 1)
[2022-08-01 00:13] LABS: BACTERIA,URINE MANY /HPF; EPITHELIAL CELLS,URINE FEW /LPF; RBC,URINE >50 /HPF (0-5); WBC,URINE (MAN) >50 /HPF (0-5)
[2022-08-01] MEDS ORDERED: CEFDINIR300 MG PO (00:28)
[2022-08-01 00:35] VITALS: BP 138/78
== END 2022-08-01 00:39 | disposition home or self-care (01) ==
LOC: ER 23:12
DX: Z46.6 Encounter for fitting and adjustment of urinary device (principal); R31.9 Hematuria, unspecified; I10 Essential (primary) hypertension; E11.9 Type 2 diabetes mellitus without complications; N31.9 Neuromuscular dysfunction of bladder, unspecified; Z87.442 Personal history of urinary calculi
CPT/HCPCS: 81001; 87086; 87186; 99283

== ENCOUNTER 2023-01-03 18:46 | Emergency (ER) | payer OTHER ==
[~2023-01-03] VITALS: Ht 157.5 cm; Wt 42.2 kg
== END 2023-01-04 00:21 | disposition home or self-care (01) ==
LOC: ER 18:51
DX: T83.89XA Other specified complication of genitourinary prosthetic devices, implants and grafts, initial encounter (principal); I10 Essential (primary) hypertension; E11.9 Type 2 diabetes mellitus without complications; N31.9 Neuromuscular dysfunction of bladder, unspecified
CPT/HCPCS: 74018; 87086; 87186; 99283

== ENCOUNTER 2024-09-17 12:39 | Emergency (ER) | payer OTHER ==
[~2024-09-17] VITALS: Ht 157.5 cm; Wt 42.2 kg
[2024-09-17 12:55] VITALS: TEMP 99.3
[2024-09-17] MEDS ORDERED: CEFUROXIME250 MG PO (15:32)
[2024-09-17 15:40] VITALS: PULSE 96; RESP 18; O2SAT 100
== END 2024-09-17 15:55 | disposition home or self-care (01) ==
LOC: ER 12:47
DX: T83.89XA Other specified complication of genitourinary prosthetic devices, implants and grafts, initial encounter (principal); I10 Essential (primary) hypertension; E11.9 Type 2 diabetes mellitus without complications; N31.9 Neuromuscular dysfunction of bladder, unspecified; Z87.442 Personal history of urinary calculi
CPT/HCPCS: 87086; 87186; 99283